=== PATIENT | female | born 1965 | race Caucasian/White ===

== ENCOUNTER 2018-11-19 17:54 | Emergency (ER) | payer BC ==
[2018-11-19 18:35] VITALS: BP 186/72
--- NOTE | 2018-11-19 18:59 | UC ---
Skin Complaint HPI - HPI Summary HPI Summary: 53-year-old woman comes in with a chief complaint of a rash on her right lower leg. She has some varicosities in that area and about a month and a half a month ago she was scratching them and developed a rash. It does itch. No fevers or chills. No pus drainage. She's tried multiple [id number] medications sometimes of they will get better other times it'll get worse. She did try Neosporin which she felt made it worse. Feels well otherwise. - History of Current Complaint Chief Complaint: UCSkin Time Seen by Provider: 11/19/18 18:44 Stated Complaint: RIGHT INNER LEG SKIN CONCERN Pain Intensity: 5 - Allergy/Home Medications Allergies/Adverse Reactions: Allergies Allergy/AdvReac Type Severity Reaction Status Date / Time No Known Allergies Allergy Verified 11/19/18 18:28 PMH/Surg Hx/FS Hx/Imm Hx Previously Healthy: Yes - Surgical History Surgical History: Yes Surgery Procedure, Year, and Place: BACK SURGERY - Family History Known Family History: Positive: Non-Contributory - Social History Alcohol Use: Rare Substance Use Type: None Smoking Status (MU): Never Smoked Tobacco Review of Systems All Other Systems Reviewed And Are Negative: Yes Constitutional: Positive: Negative Skin: Positive: Rash Eyes: Positive: Negative ENT: Positive: Negative Respiratory: Positive: Negative Cardiovascular: Positive: Negative Gastrointestinal: Positive: Negative Motor: Positive: Negative Neurovascular: Positive: Negative Musculoskeletal: Positive: Negative Neurological: Positive: Negative Psychological: Positive: Negative Is Patient Immunocompromised?: No Physical Exam Triage Information Reviewed: Yes Appearance: Well-Appearing, No Pain Distress, Well-Nourished Vital Signs: Initial Vital Signs Temp 98.4 F 11/19/18 18:29 Pulse 88 11/19/18 18:29 Resp 16 11/19/18 18:29 BP 186/72 11/19/18 18:29 Pulse Ox 100 11/19/18 18:29 Vital Signs Reviewed: Yes Eye Exam: Normal Eyes: Positive: Conjunctiva Clear Neck exam: Normal Neck: Positive: Supple Respiratory: Positive: No respiratory distress Musculoskeletal Exam: Normal Musculoskeletal: Positive: Strength Intact, ROM Intact Neurological Exam: Normal Neurological: Positive: Alert, Muscle Tone Normal Psychological Exam: Normal Psychological: Positive: Age Appropriate Behavior Skin: Positive: Other - Patient has a rash in the right lower leg on the medial aspect just proximal to the ankle. It's flats about 6 cm x 4 cm. It is erythematous with minimal blanching. Is no drainage. It's in an area with many small varicosities. No streaking. Course/Dx - Course Course Of Treatment: This rash has been present for about 1-1-1/2 months. We discussed various treatments for rashes and various causes rashes. Plan at this time is to try antibiotics. If not completely improved or recommended going to see dermatology. - Diagnoses Provider Diagnosis: Rash Discharge - Sign-Out/Discharge Documenting (check all that apply): Patient Departure All imaging exams completed and their final reports reviewed: No Studies - Discharge Plan Condition: Stable Disposition: HOME Prescriptions: Cephalexin CAP* [Keflex CAP*] 500 mg PO TID #30 cap Mupirocin 1 applic TOPICAL BID #22 gm Patient Education Materials: Acute Rash (ED) Referrals: Pepe Ford MD [Medical Doctor] - Dee Hidalgo [Medical Doctor] - Additional Instructions: FOLLOW UP WITH DERMATOLOGY IF NOT COMPLETELY IMPROVED. CLOTRIMAZOLE IS A TOPICAL ANTI FUNGAL. HYDROCORTISONE IS A TOPICAL STEROID. GET RECHECKED FOR ANY WORSENING OF YOUR CONDITION OR QUESTIONS OR CONCERNS. - Billing Disposition and Condition Condition: STABLE Disposition: Home
== END 2018-11-19 19:09 | disposition home or self-care (01) ==
LOC: UCCORT 17:54
DX: R21 Rash and other nonspecific skin eruption (principal)
CPT/HCPCS: 99212; G0463